=== PATIENT | female | born 1970 | race African-American/Black ===

== ENCOUNTER 2017-11-12 23:10 | Emergency (ER) | payer BC ==
[~2017-11-12] VITALS: Ht 162.6 cm; Wt 121.6 kg
--- NOTE | ~2017-11-12 | EKG ---
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
--- NOTE | ~2017-11-12 | EKG ---
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
[2017-11-13] MEDS ORDERED: NAPROSYN500 MG PO (00:17)
[2017-11-13] MEDS ORDERED: PREDNISONE 20 M20 MG PO (00:17)
[2017-11-13] MEDS ORDERED: TRAMADOL 50 MG50 MG PO (00:17)
[2017-11-13] MEDS ORDERED: NORVASC2.5 MG PO (00:25)
[2017-11-13] MEDS ORDERED: COZAAR 25 MG TA25 M1 PO (00:25)
[2017-11-13] MEDS ORDERED: METFORMIN HCL500 MG PO (00:26)
[2017-11-13 00:32] VITALS: BP 148/76
== END 2017-11-13 00:33 | disposition home or self-care (01) ==
LOC: ER 23:10
DX: M75.51 Bursitis of right shoulder (principal); M62.838 Other muscle spasm; I10 Essential (primary) hypertension; Z90.710 Acquired absence of both cervix and uterus; M17.0 Bilateral primary osteoarthritis of knee; M10.9 Gout, unspecified